=== PATIENT | female | born 1960 ===

== ENCOUNTER 2019-01-14 05:00 | Day surgery (SDC) | payer OTHER ==
[~2019-01-14 05:00] MED LIST: OMEPRAZOLE MAGN20 MG PO; RAYOS5 MG PO; SIMVASTATIN5 MG PO; TAPAZOLE5 M1 PO; TREXALL5 MG PO; VITAMIN D-32000 UNIT PO; WARFARIN SODIUM5 MG PO; ZESTRIL20 MG PO
[2019-01-14] MEDS ORDERED: PERCOCET 5-3251 EACH PO (09:10)
== END 2019-01-14 10:25 | disposition home or self-care (01) ==
LOC: CIR.AMB 05:00
DX: E04.1 Nontoxic single thyroid nodule (principal)